=== PATIENT | female | born 1965 ===

== ENCOUNTER 2018-04-30 16:28 | Inpatient (IN) | payer MEDICAID ==
[2018-04-30 16:49] VITALS: BMI 28.0
--- NOTE | 2018-04-30 17:01 | ED PDOC ---
Arrival/HPI - General Historian: Patient - History of Present Illness Narrative History of Present Illness (Text): 04/30/18 16:53 53 y/o female, pmh including asthma/fibromyalgia, post menopausal, psychiatric history including post depression, post menopausal, allergic to penicillin, c/o feeling depress with manic episode along with suicidal thought but no plan for 1 day. Pt. stated that she been feeling very depress, been shopping a lot to control her depress and manic episode as well, stated that she has suicidal thought but no plan, doesn't wanna , no night sweat, no rash, no numbness or tingling, no homocidal ideation, no auditory or visual hallucination, no other medical or psychological complaints. Past Medical History - Provider Review Nursing Documentation Reviewed: Yes Family/Social History - Physician Review Nursing Documentation Reviewed: Yes Family/Social History: Unknown Family HX Allergies/Home Meds Allergies/Adverse Reactions: Allergies gabapentin Allergy (Verified 04/30/18 21:26) RASH iodine Allergy (Verified 04/30/18 21:26) RASH Penicillins Allergy (Verified 04/30/18 21:26) RASH Home Medications: Home Meds Medication Instructions Recorded Confirmed No Known Home Med 04/30/18 04/30/18 Review of Systems - Review of Systems Constitutional: absent: Fatigue Eyes: absent: Vision Changes ENT: absent: Hearing Changes Respiratory: absent: SOB, Cough Cardiovascular: absent: Chest Pain Gastrointestinal: absent: Abdominal Pain, Diarrhea, Nausea, Vomiting Skin: absent: Rash, Pruritis Neurological: absent: Headache Psychiatric: Depression, Suicidal Ideation. absent: Anxiety Physical Exam Vital Signs Reviewed: Yes Temperature: Afebrile Blood Pressure: Normal Pulse: Regular Respiratory Rate: Normal Appearance: Positive for: Well-Appearing, Non-Toxic, Comfortable Pain Distress: None Mental Status: Positive for: Alert and Oriented X 3 - Systems Exam Head: Present: Atraumatic, Normocephalic Pupils: Present: PERRL Extroacular Muscles: Present: EOMI Conjunctiva: Present: Normal Mouth: Present: Moist Mucous Membranes Neck: Present: Normal Range of Motion Respiratory/Chest: Present: Clear to Auscultation, Good Air Exchange. No: Respiratory Distress, Accessory Muscle Use Cardiovascular: Present: Regular Rate and Rhythm, Normal S1, S2. No: Murmurs Abdomen: No: Tenderness, Distention, Peritoneal Signs Back: Present: Normal Inspection Upper Extremity: Present: Normal Inspection. No: Cyanosis, Edema Lower Extremity: Present: Normal Inspection. No: Edema Neurological: Present: GCS=15, CN II-XII Intact, Speech Normal Skin: Present: Warm, Dry, Normal Color. No: Rashes Psychiatric: Present: Alert, Oriented x 3, Normal Insight, Normal Concentration, Depressed Mood, Suicidal Ideation Medical Decision Making ED Course and Treatment: 04/30/18 17:07 -labs -ekg -cxr -CHANDNI Reynolds paged and would come to see the patient -One on one -Observe and reassess 04/30/18 18:20 -EKG: NSR @ 70 BPM, no ST elevation or depression, no T wave inversion. -Chest xray ER wet read: no consolidation -labs within normal limit -Alcohol level is normal limit -Acetaminophen/salicylate acid: within normal limit. -UA show no UTI -UDS show +cocaine -Pt. is medically clear and stable for psychiatric evaluation at this time. 04/30/18 19:45 -Pt evaluated by the CHANDNI Reynolds, recommend admission to psychiatrist Dr. Belem Ramirez's service and she agreed. - RAD Interpretation Radiology Orders: Chest xray: Computer Repair Technician: Radiologist - EKG Interpretation EKG Interpretation (Text): 04/30/18 17:47 NSR @ 70 BPM, no ST elevation or depression, no T wave inversion. Interpreted by ED Physician: Yes Type: 12 lead EKG - PA / RADIOLOGY EQUIPMENT SERVICER / Resident Statement MD/DO has reviewed & agrees with the documentation as recorded. Disposition/Present on Arrival - Present on Arrival Any Indicators Present on Arrival: No History of DVT/PE: No History of Uncontrolled Diabetes: No Urinary Catheter: No History of Decub. Ulcer: No - Disposition Have Diagnosis and Disposition been Completed?: Yes Diagnosis: Drug abuse, Depression, Suicidal ideation Disposition: HOSPITALIZED Disposition Time: 18:21 Patient Plan: Admission, Observation Patient Problems: Current Active Problems Problem Status Onset Bipolar 1 disorder Acute Cocaine abuse Acute Depression Acute Drug abuse Acute PTSD (post-traumatic stress disorder) Acute Suicidal ideation Acute Condition: STABLE
[2018-04-30 17:52] LABS: BASO # 0.05 K/mm3 (0.0-2.0); BASO % 0.5 % (0.0-3.0); EOS # 0.3 (0.0-0.7); EOS % 3.2 % (1.5-5.0); GRAN # 5.42 (1.4-6.5); GRAN % 58.2 % (50.0-68.0); HEMOGLOBIN 14.1 g/dL (12.0-16.0); MEAN CELL VOLUME 77.9 fl (80.0-105.0); MEAN CORPUSCULAR HEMOGLOBIN 25.8 pg (25.0-35.0); MEAN CORPUSCULAR HGB CONC 33.1 g/dl (31.0-37.0); MEAN PLATELET VOLUME 10.3 fl (7.0-11.0); MONO # 0.6 (0.1-0.6); MONO % 6.1 % (1.0-6.0); RBC 5.47 10^6/uL (3.5-6.1); RED CELL DISTRIBUTION WIDTH 16.4 % (11.5-14.5); WHITE BLOOD COUNT 9.3 10^3/uL (4.5-11.0)
[2018-04-30 17:54] LABS: PH,URINE 7.5 (4.7-8.0); URINE BILIRUBIN NEGATIVE (NEGATIVE); URINE BLOOD NEGATIVE (NEGATIVE); URINE GLUCOSE (UA) NEGATIVE (NEGATIVE); URINE LEUKOCYTE ESTERASE NEGATIVE Leu/uL (NEGATIVE); URINE PROTEIN NEGATIVE mg/dL (<30 mg/dL)
[2018-04-30 17:55] LABS: URINE APPEARANCE CLEAR (CLEAR); URINE COLOR LIGHT YELLOW (YELLOW)
[2018-04-30 18:06] LABS: ALB/GLOB RATIO 1.4 (1.1-1.8); ALBUMIN 4.1 g/dL (3.0-4.8); ALT/SGPT 40 U/L (7-56); AST/SGOT 28 U/L (14-36); BLOOD UREA NITROGEN 19 mg/dL (7-21); CALCIUM 9.4 mg/dL (8.4-10.5); GFR NON-AFRICAN AMERICAN > 60
[2018-04-30 18:16] LABS: BARBITURATES, UR NEGATIVE (NEGATIVE); BENZODIAZEPINES, UR NEGATIVE (NEGATIVE); OPIATES, UR NEGATIVE (NEGATIVE); PHENCYCLIDINE, UR NEGATIVE (NEGATIVE)
[2018-04-30 18:23] LABS: ACETAMINOPHEN < 10.0 ug/ml (10.0-20.0); SALICYLATE < 1 mg/dL (2.0-20.0)
[2018-04-30 20:18] VITALS: O2SAT 100
--- NOTE | 2018-04-30 20:30 | CARD ---
APPROVED REPORT Date of service: 04/30/2018 EKG Measurement Heart [id number] <Conclusion> Normal sinus rhythm Normal ECG
[2018-04-30] MEDS ORDERED: Magnesium Hydroxide Susp 30 ml UD PO PRN (20:35)
[2018-04-30] MEDS ORDERED: Alum-Mag Hydrox-Simethicone Susp (30 mL) PO PRN (20:35)
--- NOTE | 2018-04-30 22:50 | PCM.BM ---
<Froy Koo - Last Filed: 04/30/18 22:47> Treatment Plan Problems - Problems identified on initial assessmt Hopelessness/Helplessness Date Initiated: 04/30/18 Time Initiated: 22:48 Assessment reference: NA Status: Active Feelings of Worthlessness Date Initiated: 04/30/18 Time Initiated: 22:48 Assessment reference: NA Status: Active Ineffective Coping Date Initiated: 04/30/18 Time Initiated: 22:49 Assessment reference: NA Status: Active Altered Sleep Patterns Date Initiated: 04/30/18 Time Initiated: 22:49 Assessment reference: NA Status: Active Treatment assets and liabiliti Patient Assests: cooperative, self-reliant, ADL independent, good support system, negotiates basic needs, cognitively intact Patient Liabilities: physical pain, financial problems, poor support system, relationship conflicts, medical problems - Milieu Protocol Maintain good personal hygiene: daily Encourage regular showers, daily Remind patient to perform daily oral care, daily Assist patient to perform ADL's Conduct patient checks and document Observation sheet: Q15 minutes Maintain personal safety: every shift Educate patient to report safety concerns to staff, every shift Monitor environment for contraband/sharps Medication safety: Monitor for expected outcome, potential side effects: every shift, Assess barriers to learning: every shift, Assess readiness for medication education: every shift Discharge/Continuing Care - Education Needs Education Needs: Patient Medication, Patient Diagnosis/Disease Process, Patient Coping Skills, Patient Anger Management skills, Patient Community resources, Patient Activities of Daily Living, Patient Pain, Patient Nutrition, Patient Health Practices/Safety, Patient Aftercare Safety Plan, Patient Other - Discharge Discharge Criteria: Tolerates medication w/o severe side effects, Free of Suicidal thoughts, Free of Homicidal thoughts, Free of agitation, Normal sleep pattern, Ability to care for self, Reduction of target symptoms <Belem Marie - Last Filed: 05/01/18 14:16> - Diagnosis (1) Bipolar 1 disorder Status: Acute Interventions: 05/01/18 14:17 Psychoeducation Psychopharmacology/adjustment of medications as needed/ monitoring possible side effects Monitor blood level of mood stabilizers Evaluate pt on daily basis Compliance with medications and follow up appointments Suicide and homicide risk assessment and prevention, coping strategies, safety plan Relapse prevention Reduction of symptoms Improve functional status Family involvement As outpatient: cognitive behavioral therapy (2) PTSD (post-traumatic stress disorder) Status: Acute Interventions: 05/01/18 14:16 Psychoeducation Psychopharmacology/adjustment of medications as needed/ monitoring possible side effects Evaluate pt on daily basis Discussion of importance of being compliant with medications and follow up appointments Suicide and homicide risk assessment and prevention, coping strategies, safety plan Reduction of symptoms Relaxation techniques and breathing exercises Improve functional status Family involvement Cognitive behavioral therapy as outpatient (3) Cocaine abuse Status: Acute Interventions: 05/01/18 14:16 Maintaining sobriety Relapse prevention Possible rehabilitation Motivational interviewing 12-step programs: AA meetings <Cielo Mehta Y - Last Filed: 05/01/18 16:12> Family Contact Family involvement: Famliy/SO not involved
[2018-05-01 06:47] LABS: GLUCOSE,FASTING 96 mg/dL (65-110); HDL CHOLESTEROL 47 mg/dL (29-60)
[2018-05-01 06:59] LABS: LDL CHOLESTEROL 80 mg/dL (0-129)
--- NOTE | 2018-05-01 11:46 | RAD ---
HISTORY: psy admission COMPARISON: None available. TECHNIQUE: Chest, one view. FINDINGS: LUNGS: No focal consolidation. 5 mm nodular opacity at the right mid lung zone. PLEURA: No significant pleural effusion identified. No definite pneumothorax . CARDIOVASCULAR: Heart size appears within normal limits. No significant atherosclerotic calcification present. OSSEOUS STRUCTURES: No acute osseous abnormality identified. VISUALIZED UPPER ABDOMEN: Unremarkable. OTHER FINDINGS: None. IMPRESSION: No focal consolidation. 5 mm nodular opacity at the right lung. Outpatient CT of the chest may be considered for further evaluation. Study marked for PA review.
[2018-05-01] MEDS ORDERED: Albuterol HFA 90 mcg/actuation (8 g) IH PRN (12:38)
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
--- NOTE | 2018-05-01 16:51 | ED PDOC ---
ED Additional Note - Physician Additional Note Physician Additional Note: Chest xray placed into PA review folder: FINDINGS: LUNGS: No focal consolidation. 5 mm nodular opacity at the right mid lung zone. PLEURA: No significant pleural effusion identified. No definite pneumothorax . CARDIOVASCULAR: Heart size appears within normal limits. No significant atherosclerotic calcification present. OSSEOUS STRUCTURES: No acute osseous abnormality identified. VISUALIZED UPPER ABDOMEN: Unremarkable. OTHER FINDINGS: None. IMPRESSION: No focal consolidation. 5 mm nodular opacity at the right lung. Outpatient CT of the chest may be considered for further evaluation. Study marked for PA review. pt was admitted to Psychatric floor. I spoke with dr. Chip Tabares (medical service resident) and discussed the findings of lung nodule and need for outpatient CT of chest. She states she will make patient aware and have patient f/u with PMD for outpatient CT of chest.
[2018-05-01] MEDS: Budesonide 3 mg ER Cap PO SCH (17:34)
[2018-05-02 07:30] VITALS: RESP 20
[2018-05-02] MEDS: Pantoprazole 40 mg EC Tab PO SCH (09:29)
[2018-05-02] MEDS: Budesonide 3 mg ER Cap PO SCH (09:30)
--- NOTE | 2018-05-02 12:54 | PCM.PYCHPN ---
Psychiatric Progress Note - Psychiatric Progress Note Patient seen today, length of contact: 30 minutes Patient Chief Complaint: "I feel little better" Problems Identified/Issues Discussed: Suicide/ homicide prevention, past psychiatric h/o, current psychiatric symptoms, medical problems, risk/benefits and alternatives of medications, medications compliance, coping strategies, substance abuse h/o, relapse prevention, importance of follow up with psychiatrist and therapist, discharge plan. Medical Problems: See HPI Diagnostic Results: 04/30/18 17:48 04/30/18 17:48 Lab Results 05/01/18 07:00: Free T4 1.27 05/01/18 07:00: Free T3 pg/mL 3.06 05/01/18 06:10: RPR Nonreactive 05/01/18 06:10: TSH 3rd Generation 0.83 05/01/18 06:10: Fasting Glucose 96, Triglycerides 87, Cholesterol 152, LDL Cholesterol Direct 80, HDL Cholesterol 47 04/30/18 17:50: Urine Color Light yellow, Urine Appearance Clear, Urine pH 7.5, Ur Specific [place] 1.015, Urine Protein Negative, Urine Glucose (UA) Negative, Urine Ketones Negative, Urine Blood Negative, Urine Nitrate Negative, Urine Bilirubin Negative, Urine Urobilinogen 1.0 H, Ur Leukocyte Esterase Negative 04/30/18 17:50: Urine Opiates Screen Negative, Urine Methadone Screen Negative, Ur Barbiturates Screen Negative, Ur Phencyclidine Scrn Negative, Ur Amphetamines Screen Negative, U Benzodiazepines Scrn Negative, U Oth Cocaine Metabols Positive H, U Cannabinoids Screen Negative 04/30/18 17:48: Alcohol, Quantitative < 10 04/30/18 17:48: WBC 9.3, RBC 5.47, Hgb 14.1, Hct 42.6, MCV 77.9 L, MCH 25.8, MCHC 33.1, RDW 16.4 H, Plt Count 281, MPV 10.3, Gran % 58.2, Lymph % (Auto) 32.0, Josephine % (Auto) 6.1 H, Eos % (Auto) 3.2, Baso % (Auto) 0.5, Gran # 5.42, Lymph # (Auto) 3.0, Josephine # (Auto) 0.6, Eos # (Auto) 0.3, Baso # (Auto) 0.05 04/30/18 17:48: Sodium 138, Potassium 4.0, Chloride 106, Carbon Dioxide 25, Anion Gap 11, BUN 19, Creatinine 0.8, Est GFR ( Amer) > 60, Est GFR (Non- Af Amer) > 60, Random Glucose 107, Calcium 9.4, Total Bilirubin 0.5, AST 28, ALT 40, Alkaline Phosphatase 104, Total Protein 7.2, Albumin 4.1, Globulin 3.0, Albumin/Globulin Ratio 1.4 04/30/18 17:48: Salicylates < 1 L, Acetaminophen < 10.0 L CXR on 04/30/18 demonstrates 5 mm nodular opacity at the right lung. Recommend pt obtain outpatient CT of the chest after discharge with primary care physician. Discussed with Dr. Segura, attending physician, who agrees with plan. Patient was seen by medical team tolerating, findings discussed DSM 5 Symptoms Update: Shortly patient is a 53 y/o female, self-reported history of both PTSD, bipolar disorder, history of depression, patient also has multiple medical issues including asthma/fibromyalgia, post menopausal, but bariatric surgery, chronic back pain, herniated disks, patient brought herself to the hospital looking for help for depressive symptoms, irritability, hopelessness, passive wish to be and feeling "life is not worth living." Patient reported that medications are not working, patient requires further evaluation and stabilization and medication adjustment. Patient was seen and examined today at the morning time at the dining area, patient presented much calmer to compare with yesterday, patient was able to smile back at this screenplay writer a couple of times, patient reported that she slept "better" patient reported that so far she likes medications how they make her feel. Patient reported no major side effects and patient reported "it is a big deal for me". Patient reported transient feeling of hopelessness, helplessness, but denied any intent or plan to kill herself, transient feeling of passive wish to be . Patient reported that her anxiety is "under control", patient denied hearing voices, denied seeing things, denied paranoid ideations. As per staff patient is visible in the unit, started to participate in the unit activities, but prefers to be alone. So far patient tolerates medications well, no side effects observed or reported, aims 0, no EPS. Impression: DSM 5 Diagnosis: Rule out bipolar disorder PTSD as per history Rule out generalized anxiety disorder Questionable borderline personality disorder Urine drug screen was positive for cocaine, rule out cocaine abuse Medication Change: Yes Medical Record Reviewed: Yes Consults ordered or reviewed: Medical consult appreciated please see notes for more detailed information Mental Status Examination - Cognitive Function Orientation: Person, Place, Situation, Time Memory: Intact Attention: Poor Concentration: Poor Association: WNL Fund of Knowledge: WNL - Mood Mood: Depressed, Anxious - Affect Affect: Constricted (Irritable as well) - Formal Thought Process Formal Thought Process: No Impairment - Suicidal Ideation Suicidal Ideation: No Plan: Passive wish to be - Homicidal Ideation Homicidal Ideation: No Goal/Treatment Plan - Goal/Treatment Plan Need for Continued Stay: Remain at risks for inpatient hospitalization, Severe depression anxiety, Discharge may exacerbated symptoms, Severe functional impairment Progress Toward Problem(s) and Goals/Treatment Plan: Milieu/structure/supportive therapy Medical consult appreciated, see medical team note for more detailed info SW consultation for discharge plan and social issues Med management Patient's pharmacy was contacted, medications resumed Effexor 37.5 mg for depression and anxiety Ativan 0.5 mg twice a day as well as in the nighttime for anxiety as needed medications Family involvement Follow up on labs Will monitor closely Pt was educated about risk/benefits and alternatives of medications, coping strategies (safety plan, suicide prevention), relapse prevention, importance of follow up with psychiatrist and therapist, stay away from drugs/alcohol/smoking Estimated Date of D/C: 05/07/18
[2018-05-03] MEDS: Pantoprazole 40 mg EC Tab PO SCH (06:24)
[2018-05-03] MEDS: Budesonide 3 mg ER Cap PO SCH (08:20)
--- NOTE | 2018-05-03 12:46 | PCM.PYCHPN ---
Psychiatric Progress Note - Psychiatric Progress Note Patient seen today, length of contact: 30 minutes Patient Chief Complaint: "I would feel medications make me feel drowsy" Problems Identified/Issues Discussed: Suicide/ homicide prevention, past psychiatric h/o, current psychiatric symptoms, medical problems, risk/benefits and alternatives of medications, medications compliance, coping strategies, substance abuse h/o, relapse prevention, importance of follow up with psychiatrist and therapist, discharge plan. Medical Problems: See HPI Diagnostic Results: 04/30/18 17:48 04/30/18 17:48 Lab Results 05/01/18 07:00: Free T4 1.27 05/01/18 07:00: Free T3 pg/mL 3.06 05/01/18 06:10: RPR Nonreactive 05/01/18 06:10: TSH 3rd Generation 0.83 05/01/18 06:10: Fasting Glucose 96, Triglycerides 87, Cholesterol 152, LDL Cholesterol Direct 80, HDL Cholesterol 47 04/30/18 17:50: Urine Color Light yellow, Urine Appearance Clear, Urine pH 7.5, Ur Specific [place] 1.015, Urine Protein Negative, Urine Glucose (UA) Negative, Urine Ketones Negative, Urine Blood Negative, Urine Nitrate Negative, Urine Bilirubin Negative, Urine Urobilinogen 1.0 H, Ur Leukocyte Esterase Negative 04/30/18 17:50: Urine Opiates Screen Negative, Urine Methadone Screen Negative, Ur Barbiturates Screen Negative, Ur Phencyclidine Scrn Negative, Ur Amphetamines Screen Negative, U Benzodiazepines Scrn Negative, U Oth Cocaine Metabols Positive H, U Cannabinoids Screen Negative 04/30/18 17:48: Alcohol, Quantitative < 10 04/30/18 17:48: WBC 9.3, RBC 5.47, Hgb 14.1, Hct 42.6, MCV 77.9 L, MCH 25.8, MCHC 33.1, RDW 16.4 H, Plt Count 281, MPV 10.3, Gran % 58.2, Lymph % (Auto) 32.0, [place] % (Auto) 6.1 H, Eos % (Auto) 3.2, Baso % (Auto) 0.5, Gran # 5.42, Lymph # (Auto) 3.0, [place] # (Auto) 0.6, Eos # (Auto) 0.3, Baso # (Auto) 0.05 04/30/18 17:48: Sodium 138, Potassium 4.0, Chloride 106, Carbon Dioxide 25, Anion Gap 11, BUN 19, Creatinine 0.8, Est GFR ( Amer) > 60, Est GFR (Non- Af Amer) > 60, Random Glucose 107, Calcium 9.4, Total Bilirubin 0.5, AST 28, ALT 40, Alkaline Phosphatase 104, Total Protein 7.2, Albumin 4.1, Globulin 3.0, Albumin/Globulin Ratio 1.4 04/30/18 17:48: Salicylates < 1 L, Acetaminophen < 10.0 L CXR on 04/30/18 demonstrates 5 mm nodular opacity at the right lung. Recommend pt obtain outpatient CT of the chest after discharge with primary care physician. Discussed with Dr. Segura, attending physician, who agrees with plan. Patient was seen by medical team tolerating, findings discussed DSM 5 Symptoms Update: Shortly patient is a 53 y/o female, self-reported history of both PTSD, bipolar disorder, history of depression, patient also has multiple medical issues including asthma/fibromyalgia, post menopausal, but bariatric surgery, chronic back pain, herniated disks, patient brought herself to the hospital looking for help for depressive symptoms, irritability, hopelessness, passive wish to be and feeling "life is not worth living." Patient reported that medications are not working, patient requires further evaluation and stabilization and medication adjustment. Patient was seen and examined today at the morning time at the dining area, patient presented much calmer to compare with yesterday, patient was able to smile back at this senior grant writer a couple of times, patient reported that she slept "better, but I feel drowsy ", at the same time patient acknowledged it could be related to the fact that she was not sleeping past couple of months. Patient reported transient feeling of hopelessness, helplessness, but denied any intent or plan to kill herself, transient feeling of passive wish to be . Patient reported that her anxiety is "under control", patient denied hearing voices, denied seeing things, denied paranoid ideations. As per staff patient is visible in the unit, started to participate in the unit activities, but not talkative, just observe. So far patient tolerates medications well, no side effects observed or reported, aims 0, no EPS. Impression: DSM 5 Diagnosis: Rule out bipolar disorder PTSD as per history Rule out generalized anxiety disorder Questionable borderline personality disorder Urine drug screen was positive for cocaine, rule out cocaine abuse Medication Change: No (Because patient complaining of drowsiness) Medical Record Reviewed: Yes Consults ordered or reviewed: Medical consult appreciated please see notes for more detailed information Mental Status Examination - Cognitive Function Orientation: Person, Place, Situation, Time Memory: Intact Attention: Poor (Some improvement) Concentration: Poor (Some improvement) Association: WNL Fund of Knowledge: WNL - Mood Mood: Depressed ("I feel little better"), Anxious - Affect Affect: Constricted (Irritable as well) - Formal Thought Process Formal Thought Process: No Impairment - Suicidal Ideation Suicidal Ideation: No - Homicidal Ideation Homicidal Ideation: No Goal/Treatment Plan - Goal/Treatment Plan Need for Continued Stay: Remain at risks for inpatient hospitalization, Severe depression anxiety, Discharge may exacerbated symptoms, Severe functional impairment Progress Toward Problem(s) and Goals/Treatment Plan: Milieu/structure/supportive therapy Medical consult appreciated, see medical team note for more detailed info SW consultation for discharge plan and social issues Med management Patient's pharmacy was contacted, medications resumed Effexor 37.5 mg for depression and anxiety Ativan 0.5 mg twice a day as well as in the nighttime for anxiety as needed me dications Family involvement Follow up on labs Will monitor closely Pt was educated about risk/benefits and alternatives of medications, coping strategies (safety plan, suicide prevention), relapse prevention, importance of follow up with psychiatrist and therapist, stay away from drugs/alcohol/smoking Estimated Date of D/C: 05/07/18
[2018-05-04] MEDS: Pantoprazole 40 mg EC Tab PO SCH (07:01)
[2018-05-04] MEDS: Budesonide 3 mg ER Cap PO SCH (08:57)
--- NOTE | 2018-05-04 09:38 | PCM.PYCHPN ---
Psychiatric Progress Note - Psychiatric Progress Note Patient seen today, length of contact: 30 minutes Problems Identified/Issues Discussed: I reviewed assessment and recent notes. I met with patient in the dayroom. She is groomed, alert and well-oriented. She reports continued improvement since admission and denies any new concerns. Indicates that her mood is "fine". Affect is constricted but not apathetic, there is some reactivity with her responses. Thought process is clear and coherent. Patient reports she has been sleeping well. Denies any issues with her medications. Specifically denies any new discomfort or pain. Continues to complain of chronic back pain, unchanged. As per staff patient is visible in the unit, seems brighter and less anxious. Interacts with other patients sometimes. There have been no behavioral issues on the unit. Diagnostic Results: Rule out bipolar disorder PTSD as per history Rule out generalized anxiety disorder Questionable borderline personality disorder Urine drug screen was positive for cocaine, rule out cocaine abuse Medication Change: No ( ) Medical Record Reviewed: Yes Mental Status Examination - Cognitive Function Orientation: Person, Place, Situation, Time Memory: Intact Attention: Poor (Some improvement) Concentration: Poor (Some improvement) Association: WNL Fund of Knowledge: WNL - Mood Mood: Depressed ("I feel little better"), Anxious - Affect Affect: Constricted (Irritable as well) - Formal Thought Process Formal Thought Process: No Impairment - Suicidal Ideation Suicidal Ideation: No - Homicidal Ideation Homicidal Ideation: No Goal/Treatment Plan - Goal/Treatment Plan Need for Continued Stay: Remain at risks for inpatient hospitalization, Severe depression anxiety, Discharge may exacerbated symptoms, Severe functional impairment Progress Toward Problem(s) and Goals/Treatment Plan: * c/w current tx and plan * Vitals reviewed and noted below: Selected Entries 05/03/18 07:20 Temperature 97.5 F L Pulse Rate 63 Respiratory 20 Rate Blood Pressure 105/72 * No new weekend lab results thus far. Estimated Date of D/C: 05/07/18
[2018-05-05] MEDS: Pantoprazole 40 mg EC Tab PO SCH (06:04)
[2018-05-05] MEDS: Budesonide 3 mg ER Cap PO SCH (08:17)
--- NOTE | 2018-05-05 10:30 | PCM.PYCHPN ---
Psychiatric Progress Note - Psychiatric Progress Note Patient seen today, length of contact: 30 minutes Problems Identified/Issues Discussed: I reviewed recent notes and met with patient at bedside. She is groomed, alert and well-oriented to month, year, location and circumstances. She reports continued improvement since admission and denies any new concerns. Indicates that her mood is "fine". Affect is constricted but not apathetic, there is some reactivity with her responses. Thought process is clear and coherent. Patient reports she has been sleeping well. Denies any issues with her medications and feels that current medication combination has been very beneficial. Specifically denies any new discomfort or pain however continues to complain of chronic back pain, unchanged. Patient has "accepted the fact that this will always be a problem" As per staff patient is visible in the unit, seems brighter and less anxious though irritable at times. There have been no major behavioral issues on the unit. Diagnostic Results: Rule out bipolar disorder PTSD as per history Rule out generalized anxiety disorder Questionable borderline personality disorder Urine drug screen was positive for cocaine, rule out cocaine abuse Medication Change: No ( ) Medical Record Reviewed: Yes Mental Status Examination - Cognitive Function Orientation: Person, Place, Situation, Time Memory: Intact Attention: Poor (Some improvement) Concentration: Poor (Some improvement) Association: WNL Fund of Knowledge: WNL - Mood Mood: Depressed ("I feel little better"), Anxious - Affect Affect: Constricted (Irritable as well) - Formal Thought Process Formal Thought Process: No Impairment - Suicidal Ideation Suicidal Ideation: No - Homicidal Ideation Homicidal Ideation: No Goal/Treatment Plan - Goal/Treatment Plan Need for Continued Stay: Remain at risks for inpatient hospitalization, Severe depression anxiety, Discharge may exacerbated symptoms, Severe functional impai rment Progress Toward Problem(s) and Goals/Treatment Plan: * c/w current tx and plan * Vitals reviewed and noted below: Selected Entries 05/04/18 05/04/18 07:00 15:00 Temperature 97.8 F 97.8 F Pulse Rate 90 87 Respiratory 20 20 Rate Blood Pressure 112/68 * No new weekend lab results thus far. Estimated Date of D/C: 05/07/18
[2018-05-06] MEDS: Pantoprazole 40 mg EC Tab PO SCH (05:41)
[2018-05-06] MEDS: Budesonide 3 mg ER Cap PO SCH (09:30)
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
[2018-05-07] MEDS: Pantoprazole 40 mg EC Tab PO SCH (06:27)
[2018-05-07] MEDS: Budesonide 3 mg ER Cap PO SCH (08:11)
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
--- NOTE | 2018-05-07 14:50 | PCM.PYCHPN ---
Psychiatric Progress Note - Psychiatric Progress Note Patient seen today, length of contact: 30 minutes Patient Chief Complaint: "I am feeling very anxious, I cannot concentrate" Problems Identified/Issues Discussed: Suicide/ homicide prevention, past psychiatric h/o, current psychiatric symptoms, medical problems, risk/benefits and alternatives of medications, medications compliance, coping strategies, substance abuse h/o, relapse prevention, importance of follow up with psychiatrist and therapist, discharge plan. Medical Problems: See HPI Diagnostic Results: 04/30/18 17:48 04/30/18 17:48 Lab Results 05/01/18 07:00: Free T4 1.27 05/01/18 07:00: Free T3 pg/mL 3.06 05/01/18 06:10: RPR Nonreactive 05/01/18 06:10: TSH 3rd Generation 0.83 05/01/18 06:10: Fasting Glucose 96, Triglycerides 87, Cholesterol 152, LDL Cholesterol Direct 80, HDL Cholesterol 47 04/30/18 17:50: Urine Color Light yellow, Urine Appearance Clear, Urine pH 7.5, Ur Specific [place] 1.015, Urine Protein Negative, Urine Glucose (UA) Negative, Urine Ketones Negative, Urine Blood Negative, Urine Nitrate Negative, Urine Bilirubin Negative, Urine Urobilinogen 1.0 H, Ur Leukocyte Esterase Negative 04/30/18 17:50: Urine Opiates Screen Negative, Urine Methadone Screen Negative, Ur Barbiturates Screen Negative, Ur Phencyclidine Scrn Negative, Ur Amphetamines Screen Negative, U Benzodiazepines Scrn Negative, U Oth Cocaine Metabols Positive H, U Cannabinoids Screen Negative 04/30/18 17:48: Alcohol, Quantitative < 10 04/30/18 17:48: WBC 9.3, RBC 5.47, Hgb 14.1, Hct 42.6, MCV 77.9 L, MCH 25.8, MCHC 33.1, RDW 16.4 H, Plt Count 281, MPV 10.3, Gran % 58.2, Lymph % (Auto) 32.0, [place] % (Auto) 6.1 H, Eos % (Auto) 3.2, Baso % (Auto) 0.5, Gran # 5.42, Lymph # (Auto) 3.0, [place] # (Auto) 0.6, Eos # (Auto) 0.3, Baso # (Auto) 0.05 04/30/18 17:48: Sodium 138, Potassium 4.0, Chloride 106, Carbon Dioxide 25, Anion Gap 11, BUN 19, Creatinine 0.8, Est GFR ( Amer) > 60, Est GFR (Non- Af Amer) > 60, Random Glucose 107, Calcium 9.4, Total Bilirubin 0.5, AST 28, ALT 40, Alkaline Phosphatase 104, Total Protein 7.2, Albumin 4.1, Globulin 3.0, Albumin/Globulin Ratio 1.4 04/30/18 17:48: Salicylates < 1 L, Acetaminophen < 10.0 L CXR on 04/30/18 demonstrates 5 mm nodular opacity at the right lung. Recommend pt obtain outpatient CT of the chest after discharge with primary care physician. Discussed with Dr. Segura, attending physician, who agrees with plan. Patient was seen by medical team tolerating, findings discussed Temp Pulse Resp BP Pulse Ox 98.8 F 90 20 107/64 100 05/06/18 07:21 05/06/18 07:21 05/06/18 07:21 05/06/18 07:21 04/30/18 20:32 DSM 5 Symptoms Update: Shortly patient is a 53 y/o female, self-reported history of both PTSD, bipolar disorder, history of depression, patient also has multiple medical issues including asthma/fibromyalgia, post menopausal, but bariatric surgery, chronic back pain, herniated disks, patient brought herself to the hospital l ooking for help for depressive symptoms, irritability, hopelessness, passive wish to be and feeling "life is not worth living." Patient reported that medications are not working, patient requires further evaluation and stabilization and medication adjustment. Patient was seen and examined today at the morning time at the dining area, patient presented more anxious today, patient reported that she did not sleep well last night, patient complained that her mind was racing, patient is willing to increase Effexor today, patient reported that she feels "overwhelmed". Patient reported that her mood is very anxious and depressed, patient denied thoughts of harming herself or others but "I do not want to do anything". Patient adamantly denied thoughts of harming himself or others denied intent or intent or plan. As per staff patient is visible in the unit, started to participate in the unit activities, but not talkative, just observe. So far patient tolerates medications well, no side effects observed or reported, aims 0, no EPS. Patient complaint "worsening" of her dizziness and vertigo, neurology input appreciated. Impression: DSM 5 Diagnosis: Rule out bipolar disorder PTSD as per history Rule out generalized anxiety disorder Questionable borderline personality disorder Urine drug screen was positive for cocaine, rule out cocaine abuse Medication Change: Yes (Effexor increased) Medical Record Reviewed: Yes Mental Status Examination - Cognitive Function Orientation: Person, Place, Situation, Time Memory: Intact Attention: Poor (Some improvement) Concentration: Poor (Some improvement) Association: WNL Fund of Knowledge: WNL - Mood Mood: Depressed ("I feel little better"), Anxious - Affect Affect: Constricted (Irritable as well) - Formal Thought Process Formal Thought Process: No Impairment - Suicidal Ideation Suicidal Ideation: No - Homicidal Ideation Homicidal Ideation: No Goal/Treatment Plan - Goal/Treatment Plan Need for Continued Stay: Remain at risks for inpatient hospitalization, Severe depression anxiety, Discharge may exacerbated symptoms, Severe functional impairment Progress Toward Problem(s) and Goals/Treatment Plan: Milieu/structure/supportive therapy Medical consult appreciated, see medical team note for more detailed info SW consultation for discharge plan and social issues Med management Patient's pharmacy was contacted, medications resumed Effexor 75 mg for depression and anxiety Ativan 0.5 mg twice a day as well as 1mg at the nighttime for anxiety as needed medications Family involvement Follow up on labs Will monitor closely Pt was educated about risk/benefits and alternatives of medications, coping strategies (safety plan, suicide prevention), relapse prevention, importance of follow up with psychiatrist and therapist, stay away from drugs/alcohol/smoking Estimated Date of D/C: 05/09/18
[2018-05-08] MEDS: Pantoprazole 40 mg EC Tab PO SCH (05:17)
--- NOTE | 2018-05-08 14:41 | PCM.PYCHPN ---
Psychiatric Progress Note - Psychiatric Progress Note Patient seen today, length of contact: 30 minutes Patient Chief Complaint: "I am in a lot of pain, I cannot move my bowel, I cannot sleep and I am feeling very anxious" Problems Identified/Issues Discussed: Suicide/ homicide prevention, past psychiatric h/o, current psychiatric symptoms, medical problems, risk/benefits and alternatives of medications, medications compliance, coping strategies, substance abuse h/o, relapse prevention, importance of follow up with psychiatrist and therapist, discharge plan. Medical Problems: See HPI Diagnostic Results: 04/30/18 17:48 04/30/18 17:48 Lab Results 05/01/18 07:00: Free T4 1.27 05/01/18 07:00: Free T3 pg/mL 3.06 05/01/18 06:10: RPR Nonreactive 05/01/18 06:10: TSH 3rd Generation 0.83 05/01/18 06:10: Fasting Glucose 96, Triglycerides 87, Cholesterol 152, LDL Cholesterol Direct 80, HDL Cholesterol 47 04/30/18 17:50: Urine Color Light yellow, Urine Appearance Clear, Urine pH 7.5, Ur Specific [place] 1.015, Urine Protein Negative, Urine Glucose (UA) Negative, Urine Ketones Negative, Urine Blood Negative, Urine Nitrate Negative, Urine Bilirubin Negative, Urine Urobilinogen 1.0 H, Ur Leukocyte Esterase Negative 04/30/18 17:50: Urine Opiates Screen Negative, Urine Methadone Screen Negative, Ur Barbiturates Screen Negative, Ur Phencyclidine Scrn Negative, Ur Amphetamines Screen Negative, U Benzodiazepines Scrn Negative, U Oth Cocaine Metabols Positive H, U Cannabinoids Screen Negative 04/30/18 17:48: Alcohol, Quantitative < 10 04/30/18 17:48: WBC 9.3, RBC 5.47, Hgb 14.1, Hct 42.6, MCV 77.9 L, MCH 25.8, MCHC 33.1, RDW 16.4 H, Plt Count 281, MPV 10.3, Gran % 58.2, Lymph % (Auto) 32.0, [place] % (Auto) 6.1 H, Eos % (Auto) 3.2, Baso % (Auto) 0.5, Gran # 5.42, Lymph # (Auto) 3.0, [place] # (Auto) 0.6, Eos # (Auto) 0.3, Baso # (Auto) 0.05 04/30/18 17:48: Sodium 138, Potassium 4.0, Chloride 106, Carbon Dioxide 25, Anion Gap 11, BUN 19, Creatinine 0.8, Est GFR ( Amer) > 60, Est GFR (Non- Af Amer) > 60, Random Glucose 107, Calcium 9.4, Total Bilirubin 0.5, AST 28, ALT 40, Alkaline Phosphatase 104, Total Protein 7.2, Albumin 4.1, Globulin 3.0, Albumin/Globulin Ratio 1.4 04/30/18 17:48: Salicylates < 1 L, Acetaminophen < 10.0 L CXR on 04/30/18 demonstrates 5 mm nodular opacity at the right lung. Recommend pt obtain outpatient CT of the chest after discharge with primary care physician. Discussed with Dr. Segura, attending physician, who agrees with plan. Patient was seen by medical team tolerating, findings discussed Temp Pulse Resp BP Pulse Ox 98.8 F 90 20 107/64 100 05/06/18 07:21 05/06/18 07:21 05/06/18 07:21 05/06/18 07:21 04/30/18 20:32 DSM 5 Symptoms Update: Shortly patient is a 53 y/o female, self-reported history of both PTSD, bipolar disorder, history of depression, patient also has multiple medical issues including asthma/fibromyalgia, post menopausal, but bariatric surgery, chronic back pain, herniated disks, patient brought herself to the hospital looking for help for depressive symptoms, irritability, hopelessness, passive wish to be and feeling "life is not worth living." Patient reported that m edications are not working, patient requires further evaluation and stabilization and medication adjustment. Patient was seen and examined today at the morning time next to the nursing station, patient has a lot of somatic complaints about her BP, about constipation, about inability to sleep. Overall patient presented unsatisfied, depressed, on the other hand patient was able to stay focused and build puzzles, yesterday patient had a verbal altercation with another patient but patient was not aggressive. As per staff patient is visible in the unit, started to participate in the unit activities, but not talkative, just observe. So far patient tolerates medications well, no side effects observed or reported, aims 0, no EPS. Patient complaint "worsening" of her dizziness and vertigo, neurology input appreciated. As per neurology team tramadol need to be decreased, patient is not in agreement with that plan, patient was asking to increase her tramadol back to 3 times a day, patient denied any worsening of her dizziness. Impression: DSM 5 Diagnosis: Rule out bipolar disorder PTSD as per history Rule out generalized anxiety disorder Questionable borderline personality disorder Urine drug screen was positive for cocaine, rule out cocaine abuse Medication Change: Yes (Effexor increased May 07) Medical Record Reviewed: Yes Mental Status Examination - Cognitive Function Orientation: Person, Place, Situation, Time Memory: Intact Attention: Poor (Some improvement) Concentration: Poor (Some improvement) Association: WNL Fund of Knowledge: WNL - Mood Mood: Depressed ("I feel little better"), Anxious - Affect Affect: Constricted (Irritable as well) - Formal Thought Process Formal Thought Process: No Impairment - Suicidal Ideation Suicidal Ideation: No - Homicidal Ideation Homicidal Ideation: No Goal/Treatment Plan - Goal/Treatment Plan Need for Continued Stay: Remain at risks for inpatient hospitalization, Severe depression anxiety, Discharge may exacerbated symptoms, Severe functional impairment Progress Toward Problem(s) and Goals/Treatment Plan: Milieu/structure/supportive therapy Medical consult appreciated, see medical team note for more detailed info SW consultation for discharge plan and social issues Med management Patient's pharmacy was contacted, medications resumed Effexor 75 mg for depression and anxiety Ativan 0.5 mg twice a day as well as 1mg at the nighttime for anxiety as needed medications Family involvement, patient was advised to let her boyfriend know that she will be discharged back home by the end of the week, patient verbalized understanding, patient was educated about the importance to continue seeing therapist and psychiatrist as well as look for family sessions with her boyfrie nd. Follow up on labs Will monitor closely Pt was educated about risk/benefits and alternatives of medications, coping strategies (safety plan, suicide prevention), relapse prevention, importance of follow up with psychiatrist and therapist, stay away from drugs/alcohol/smoking Estimated Date of D/C: 05/10/18
[2018-05-08] MEDS: Budesonide 3 mg ER Cap PO SCH (15:30)
[2018-05-09] MEDS: Pantoprazole 40 mg EC Tab PO SCH (05:21)
[2018-05-09] MEDS: Budesonide 3 mg ER Cap PO SCH (08:29)
--- NOTE | 2018-05-09 15:08 | PCM.PYCHPN ---
Psychiatric Progress Note - Psychiatric Progress Note Patient seen today, length of contact: 30 minutes Patient Chief Complaint: "i am very anxious" Problems Identified/Issues Discussed: Suicide/ homicide prevention, past psychiatric h/o, current psychiatric sy mptoms, medical problems, risk/benefits and alternatives of medications, medications compliance, coping strategies, substance abuse h/o, relapse prevention, importance of follow up with psychiatrist and therapist, discharge plan. Medical Problems: See HPI Diagnostic Results: 04/30/18 17:48 04/30/18 17:48 Lab Results 05/01/18 07:00: Free T4 1.27 05/01/18 07:00: Free T3 pg/mL 3.06 05/01/18 06:10: RPR Nonreactive 05/01/18 06:10: TSH 3rd Generation 0.83 05/01/18 06:10: Fasting Glucose 96, Triglycerides 87, Cholesterol 152, LDL Cholesterol Direct 80, HDL Cholesterol 47 04/30/18 17:50: Urine Color Light yellow, Urine Appearance Clear, Urine pH 7.5, Ur Specific [place] 1.015, Urine Protein Negative, Urine Glucose (UA) Negative, Urine Ketones Negative, Urine Blood Negative, Urine Nitrate Negative, Urine Bilirubin Negative, Urine Urobilinogen 1.0 H, Ur Leukocyte Esterase Negative 04/30/18 17:50: Urine Opiates Screen Negative, Urine Methadone Screen Negative, Ur Barbiturates Screen Negative, Ur Phencyclidine Scrn Negative, Ur Amphetamines Screen Negative, U Benzodiazepines Scrn Negative, U Oth Cocaine Metabols Positive H, U Cannabinoids Screen Negative 04/30/18 17:48: Alcohol, Quantitative < 10 04/30/18 17:48: WBC 9.3, RBC 5.47, Hgb 14.1, Hct 42.6, MCV 77.9 L, MCH 25.8, MCHC 33.1, RDW 16.4 H, Plt Count 281, MPV 10.3, Gran % 58.2, Lymph % (Auto) 32.0, [place] % (Auto) 6.1 H, Eos % (Auto) 3.2, Baso % (Auto) 0.5, Gran # 5.42, Lymph # (Auto) 3.0, [place] # (Auto) 0.6, Eos # (Auto) 0.3, Baso # (Auto) 0.05 04/30/18 17:48: Sodium 138, Potassium 4.0, Chloride 106, Carbon Dioxide 25, Anion Gap 11, BUN 19, Creatinine 0.8, Est GFR ( Amer) > 60, Est GFR (Non- Af Amer) > 60, Random Glucose 107, Calcium 9.4, Total Bilirubin 0.5, AST 28, ALT 40, Alkaline Phosphatase 104, Total Protein 7.2, Albumin 4.1, Globulin 3.0, Albumin/Globulin Ratio 1.4 04/30/18 17:48: Salicylates < 1 L, Acetaminophen < 10.0 L CXR on 04/30/18 demonstrates 5 mm nodular opacity at the right lung. Recommend pt obtain outpatient CT of the chest after discharge with primary care physician. Discussed with Dr. Segura, attending physician, who agrees with plan. Patient was seen by medical team tolerating, findings discussed Temp Pulse Resp BP Pulse Ox 98.8 F 90 20 107/64 100 05/06/18 07:21 05/06/18 07:21 05/06/18 07:21 05/06/18 07:21 04/30/18 20:32 DSM 5 Symptoms Update: Shortly patient is a 53 y/o female, self-reported history of both PTSD, bipolar disorder, history of depression, patient also has multiple medical issues including asthma/fibromyalgia, post menopausal, but bariatric surgery, chronic back pain, herniated disks, patient brought herself to the hospital looking for help for depressive symptoms, irritability, hopelessness, passive wish to be and feeling "life is not worth living." Patient reported that medications are not working, patient requires further evaluation and stabi lization and medication adjustment. Patient was seen and examined today next to the nursing station, pt is dramatic, saying that she is "very anxious", but pt does not present to be anxious. pt reported that she moved her bowl "but not enough" c/o vertigo. Overall patient presented unsatisfied, depressed, on the other hand patient was able to stay focused and build puzzles. As per staff patient is visible in the unit, started to participate in the unit activities, but not talkative, just observe. So far patient tolerates medications well, no side effects observed or reported, aims 0, no EPS. pt was insisting to increase her tramadol what she was taking before, resumed at the previous doses. pt contracted for safety, denied thoughts of harming self or others no psychosis observed or reported Impression: DSM 5 Diagnosis: Rule out bipolar disorder PTSD as per history Rule out generalized anxiety disorder Questionable borderline personality disorder Urine drug screen was positive for cocaine, rule out cocaine abuse Medication Change: Yes (tramadol increased) Medical Record Reviewed: Yes Mental Status Examination - Cognitive Function Orientation: Person, Place, Situation, Time Memory: Intact Attention: Poor (Some improvement) Concentration: Poor (Some improvement) Association: WNL Fund of Knowledge: WNL - Mood Mood: Depressed ("I feel little better"), Anxious - Affect Affect: Constricted (Irritable as well) - Formal Thought Process Formal Thought Process: No Impairment - Suicidal Ideation Suicidal Ideation: No - Homicidal Ideation Homicidal Ideation: No Goal/Treatment Plan - Goal/Treatment Plan Need for Continued Stay: Remain at risks for inpatient hospitalization, Severe depression anxiety, Discharge may exacerbated symptoms, Severe functional impairment Progress Toward Problem(s) and Goals/Treatment Plan: Milieu/structure/supportive therapy Medical consult appreciated, see medical team note for more detailed info SW consultation for discharge plan and social issues Med management Patient's pharmacy was contacted, medications resumed Effexor 75 mg for depression and anxiety Ativan 0.5 mg twice a day as well as 1mg at the nighttime for anxiety as needed medications Family involvement, patient was advised to let her boyfriend know that she will be discharged back home by the end of the week, patient verbalized understanding, patient was educated about the importance to continue seeing therapist and psychiatrist as well as look for family sessions with her boyfriend. Follow up on labs Will monitor closely Pt was educated about risk/benefits and alternatives of medications, coping strategies (safety plan, suicide prevention), relapse prevention, importance of follow up with psychiatrist and therapist, stay away from drugs/alcohol/smoking Estimated Date of D/C: 05/10/18
[2018-05-10] MEDS: Pantoprazole 40 mg EC Tab PO SCH (05:59)
[2018-05-10 07:25] VITALS: BP 121/68; PULSE 81; TEMP 98.7
[2018-05-10] MEDS: Budesonide 3 mg ER Cap PO SCH (09:38)
--- NOTE | 2018-05-10 13:34 | PCM.PYCHDC ---
Mental Status Examination - Mental Status Examination Orientation: Person, Place, Situation, Time Memory: Intact Mood: Neutral Affect: Constricted (But reactive and mood congruent) Speech: Appropriate Attention: WNL Concentration: WNL Association: WNL Fund of Knowledge: WNL Formal Thought Process: No Impairment Description of patient's judgement and insight: Pt has improved insight into mental and medical illness, pt was compliant with medications and unit rules and regulations, pt was going to groups, was calm, cooperative, socially appropriate, no behavioral incidents, no agitation, no aggression. Psychotic Thoughts and Behaviors: Pt denied v/a/t hallucinations, denied paranoid ideations, pt does not appear to be psychotic, and thought process is goal directed. Suicidal Ideation: No Current Homicidal Ideation?: No Plan: pt adamantly denied thoughts of harming self or others denied intent or plan. Discharge Summary - Discharge Note Reason for Hospitalization: Patient was admitted for evaluation and stabilization of depressive symptoms, irritability, uncontrolled anxiety, feeling "life is not worth living". Psychiatric History (includes Medical, Family, Personal Hx): See HPI Laboratory Data: Abnormal Lab Results 05/09/18 11:34 POC Glucose (mg/dL) 116 H Consultations:: List each consultation separately and include: 1. Reason for request. 2. Findings. 3. Follow-up Consultations: Medical consult appreciated please see notes for more detailed information pt was also seen by neurology team for vertigo, tramadol was recommended to be decreased but patient refused to do so and wanted to continue the previous dose. See notes for more detailed information Summary of Hospital Course include:: 1. Description of specific treatment plan utilized for patients during their course of treatmen. 2. Summarize the time- course for resolution of acute symptoms and/or regressed behaviors. 3. Describe issues identified and worked on during hospitalization. 4. Describe medication utilized. 5. Describe medical problems identified and treated. 6. Reassessment of suicide risk Summary of Hospital Course: Shortly patient is a 53 y/o female, self-reported history of both PTSD, bipolar disorder, history of depression, patient also has multiple medical issues including asthma/fibromyalgia, post menopausal, h/o bariatric surgery, chronic back pain, herniated disks, patient brought herself to the hospital looking for help for depressive symptoms, irritability, hopelessness, passive wish to be and feeling "life is not worth living." Patient reported that medications are not working, patient required further evaluation and stabilization and medication adjustment. Please see admission note for more detailed information. Patient's pharmacy was contacted [phone] patient was not medications: Flexeril 3 times a day budesonide ventolin Tramadol 50 mg every 6 hours as needed for pain Meclizine 25 mg 3 times a day as needed Celexa 20 mg daily Abilify 20 mg daily Trazodone 100 mg at the nighttime Lyrica 75 mg twice a day but last time patient filled that medication was in 2017 and August Patient does not want to continue trazodone/Abilify/Celexa 04/30/18 17:48 04/30/18 17:48 Lab Results 05/01/18 07:00: Free T4 1.27 05/01/18 06:10: TSH 3rd Generation 0.83 05/01/18 06:10: Fasting Glucose 96, Triglycerides 87, Cholesterol 152, LDL Cholesterol Direct 80, HDL Cholesterol 47 04/30/18 17:50: Urine Color Light yellow, Urine Appearance Clear, Urine pH 7.5, Ur Specific [place] 1.015, Urine Protein Negative, Urine Glucose (UA) Negative, Urine Ketones Negative, Urine Blood Negative, Urine Nitrate Negative, Urine Bilirubin Negative, Urine Urobilinogen 1.0 H, Ur Leukocyte Esterase Negative 04/30/18 17:50: Urine Opiates Screen Negative, Urine Methadone Screen Negative, Ur Barbiturates Screen Negative, Ur Phencyclidine Scrn Negative, Ur Amphetamines Screen Negative, U Benzodiazepines Scrn Negative, U Oth Cocaine Metabols Positive H, U Cannabinoids Screen Negative 04/30/18 17:48: Alcohol, Quantitative < 10 04/30/18 17:48: WBC 9.3, RBC 5.47, Hgb 14.1, Hct 42.6, MCV 77.9 L, MCH 25.8, MCHC 33.1, RDW 16.4 H, Plt Count 281, MPV 10.3, Gran % 58.2, Lymph % (Auto) 32. 0, [place] % (Auto) 6.1 H, Eos % (Auto) 3.2, Baso % (Auto) 0.5, Gran # 5.42, Lymph # (Auto) 3.0, [place] # (Auto) 0.6, Eos # (Auto) 0.3, Baso # (Auto) 0.05 04/30/18 17:48: Sodium 138, Potassium 4.0, Chloride 106, Carbon Dioxide 25, Anion Gap 11, BUN 19, Creatinine 0.8, Est GFR ( Amer) > 60, Est GFR (Non- Af Amer) > 60, Random Glucose 107, Calcium 9.4, Total Bilirubin 0.5, AST 28, ALT 40, Alkaline Phosphatase 104, Total Protein 7.2, Albumin 4.1, Globulin 3.0, Albumin/Globulin Ratio 1.4 04/30/18 17:48: Salicylates < 1 L, Acetaminophen < 10.0 L Vital Signs Temp Pulse Resp BP Pulse Ox 05/01/18 07:10 98.0 F 65 18 96/58 L 04/30/18 20:32 98.8 F 70 18 111/78 100 04/30/18 20:18 98.2 F 74 18 116/77 100 04/30/18 20:17 98.2 F 74 18 116/77 100 04/30/18 16:49 98.1 F 60 18 128/81 98 Over the course of this hospitalization patient was stabilized on the following medications: Effexor was initiated and slowly titrated up to 75 mg daily for depression and anxiety Ativan was slowly titrated up to 2.5 mg twice a day during the daytime and 1 mg at the nighttime for anxiety Sonata was given to the patient 10 mg at the nighttime for insomnia Patient tolerated medications well, no side effects observed or reported, aims 0, no EPS. Patient was seen by medical team as well as neurology team please see notes for more detailed information. Over the course of this hospitalization pt was attending groups, pt also had medication management, had therapeutic milieu. The Patient has strong borderline personality traits. Patient seems to be very, comfortable in the unit, no agitation no aggression. Overall pt improved significantly, pt's affect became brighter, pt was less depressed, has realistic future oriented plans, pt also does not appear to be psychotic, or anxious, pt was socially appropriate, no behavioral issues, soon pt deemed to be ready for discharge. Patient did not want to leave, patient wants to stay in the hospital as long as possible, but at the same time patient does not meet the criteria for further hospitalization, patient eats/sleeps good, no psychosis, denied thoughts of harming himself or others. At the time of the discharge patient pose no imminent danger to self or others, will be following up at [facility] other than how you, information about follow up appointment, time and address provided to the pt, it is patient responsibility to follow up with outpatient clinic, PMD as well as specialists (see note for more detailed information). In case patient needs to obtain results of studies pending at discharge pt was provided with contact information of Psychiatric Inpatient unit [phone] as well as Medical Record Department [phone], as well as [facility] team [phone]. pt refused to have nicotine patch pt denied using drugs, but UDS was positive for cocaine pt was provided with prescriptions for two weeks and one refill for psychotropic meds and one week for medical meds (see medication reconciliation form) Pt was educated about safety plan in case of worsening of symptoms or in case of suicidal or homicidal ideation call 911 or go to the nearest ER, also was educated to take meds as prescribed and stay away from drugs, pt verbalized understanding. - Diagnosis (1) Bipolar 1 disorder Current Visit: Yes Status: Chronic Priority: Medium (2) PTSD (post-traumatic stress disorder) Current Visit: Yes Status: Chronic Priority: Medium (3) Cocaine abuse Current Visit: Yes Status: Suspected - Final Diagnosis (DSM 5) Condition upon Discharge: STABLE DSM 5: Rule out borderline personality disorder Disposition: HOME/ ROUTINE Follow-up Treatment Plan: At the time of the discharge patient pose no imminent danger to self or others, will be following up at [facility] other than how you, information about follow up appointment, time and address provided to the pt, it is patient responsibility to follow up with outpatient clinic, PMD as well as specialists (see SW note for more detailed information). Prescriptions/Medication Reconciliation: Budesonide [Entocort EC] 3 mg PO DAILY #7 ecc Cyclobenzaprine [Flexeril] 5 mg PO TID #21 tab Docusate [Colace] 100 mg PO TID #21 cap LORazepam [Ativan] 1 mg PO HS #14 tab LORazepam [Ativan] 0.5 mg PO BID #30 tab Pantoprazole [Protonix EC Tab] 40 mg PO 0600 #7 ect Venlafaxine [Effexor-XR] 75 mg PO DAILY #14 cer Zaleplon [Sonata] 10 mg PO HS #14 capsule - Smoking Cessation Smoking Cessation Medication prescribed: No Reason for not providing: Patient refused - Antipsychotic Medications Pt discharged on 2 or more routine antipsychotic medications: No
== END 2018-05-10 16:33 | disposition home or self-care (01) | DRG 430 ==
LOC: ED 16:28 → ERH 19:37 → PSYC 20:26 → OBSVTOIN 20:33 → PSYC 05-04 17:28
PROVIDERS: ADMIT Psychiatry & Neurology Psychiatry; ATTEND Psychiatry & Neurology Psychiatry
DX: F31.9 Bipolar disorder, unspecified (principal); F14.10 Cocaine abuse, uncomplicated; F43.10 Post-traumatic stress disorder, unspecified; F60.3 Borderline personality disorder; R45.851 Suicidal ideations; M79.7 Fibromyalgia; H93.13 Tinnitus, bilateral; J45.909 Unspecified asthma, uncomplicated; F41.1 Generalized anxiety disorder; Z87.891 Personal history of nicotine dependence; Z98.84 Bariatric surgery status; Z88.0 Allergy status to penicillin